=== PATIENT | female | born 1995 | race Caucasian/White ===

== ENCOUNTER 2016-08-23 12:55 | Emergency (ER) | payer BC, OTHER | END 2016-08-23 15:14 | disposition home or self-care (01) | LOC: ER1 12:55 | DX: S16.1XXA Strain of muscle, fascia and tendon at neck level, initial encounter (principal); E10.9 Type 1 diabetes mellitus without complications; V43.52XA Car driver injured in collision with other type car in traffic accident, initial encounter; Y93.89 Activity, other specified; Y92.410 Unspecified street and highway as the place of occurrence of the external cause | CPT/HCPCS: 71020; 72125; 81001; 84703; 99284 ==

== ENCOUNTER → 2021-07-08 | Outpatient (CLI) | payer OTHER | LOC: KOH-I 06-30 10:30 | DX: J32.9 Chronic sinusitis, unspecified (principal) | CPT/HCPCS: 70486 ==